=== PATIENT | female | born 1995 | race Two or more races ===

== ENCOUNTER → 2020-04-11 | Outpatient (CLI) | payer OTHER | END | disposition home or self-care (01) | LOC: PRENATAL 14:30 | PROVIDERS: ATTEND Obstetrics & Gynecology Maternal & Fetal Medicine | DX: O35.0XX1 Maternal care for (suspected) central nervous system malformation in fetus, fetus 1 (principal); O35.3XX1 Maternal care for (suspected) damage to fetus from viral disease in mother, fetus 1; O98.512 Other viral diseases complicating pregnancy, second trimester; O28.1 Abnormal biochemical finding on antenatal screening of mother; Z36.89 Encounter for other specified antenatal screening; Z3A.20 20 weeks gestation of pregnancy ==

== ENCOUNTER 2020-06-07 04:05 | Outpatient (CLI) | payer OTHER ==
[2020-06-07] MEDS ORDERED: FOLIC ACID0.8 M1 PO (04:31)
[2020-06-07] MEDS ORDERED: PRENATAL TABLE1 EAC1 PO (04:31)
== END 2020-06-08 10:44 | disposition home or self-care (01) ==
LOC: OBS/DEL 04:05
PROVIDERS: ATTEND Obstetrics & Gynecology
DX: O60.03 Preterm labor without delivery, third trimester (principal); O98.813 Other maternal infectious and parasitic diseases complicating pregnancy, third trimester; B37.49 Other urogenital candidiasis; O23.33 Infections of other parts of urinary tract in pregnancy, third trimester

== ENCOUNTER 2020-06-19 23:51 | Inpatient (IN) | payer OTHER ==
[~2020-06-19] VITALS: Ht 154.9 cm; Wt 55.8 kg
[~2020-06-19 23:51] MED LIST: FOLIC ACID0.8 M1 PO; PRENATAL TABLE1 EAC1 PO
== END 2020-06-25 12:18 | disposition home or self-care (01) | DRG 832 ==
LOC: OBS/DEL 23:51 → LDR 06-20 08:29 → OB/GYN 06-21 13:09
PROVIDERS: ADMIT Obstetrics & Gynecology; ATTEND Obstetrics & Gynecology
PROC: 4A1HXFZ Monitoring of Products of Conception, Cardiac Rhythm, External Approach (ICD-10-PCS; principal; 2020-06-20)
DX: O60.03 Preterm labor without delivery, third trimester (principal); O23.43 Unspecified infection of urinary tract in pregnancy, third trimester; Z3A.30 30 weeks gestation of pregnancy

== ENCOUNTER 2020-08-12 14:00 | Inpatient (IN) | payer OTHER ==
[~2020-08-12] VITALS: Ht 154.9 cm; Wt 59.0 kg
[2020-08-27] MEDS ORDERED: IRON325 MG PO (08:33)
== END 2020-08-29 13:56 | disposition home or self-care (01) | DRG 807 ==
LOC: SURH 08-24 14:00 → OB/GYN 08-27 06:28 → LDR 08-27 06:28 → OB/GYN 08-27 18:16
PROVIDERS: ADMIT Obstetrics & Gynecology; ATTEND Obstetrics & Gynecology
PROC: 10E0XZZ Delivery of Products of Conception, External Approach (ICD-10-PCS; principal; 2020-08-27)
PROC: 0KQM0ZZ Repair Perineum Muscle, Open Approach (ICD-10-PCS; 2020-08-27)
PROC: 10907ZC Drainage of Amniotic Fluid, Therapeutic from Products of Conception, Via Natural or Artificial Opening (ICD-10-PCS; 2020-08-27)
PROC: 3E033VJ Introduction of Other Hormone into Peripheral Vein, Percutaneous Approach (ICD-10-PCS; 2020-08-27)
PROC: 3E0D7GC Introduction of Other Therapeutic Substance into Mouth and Pharynx, Via Natural or Artificial Opening (ICD-10-PCS; 2020-08-27)
PROC: 4A1HXFZ Monitoring of Products of Conception, Cardiac Rhythm, External Approach (ICD-10-PCS; 2020-08-27)
DX: O70.1 Second degree perineal laceration during delivery (principal); Z37.0 Single live birth; O99.824 Streptococcus B carrier state complicating childbirth; Z3A.40 40 weeks gestation of pregnancy; Z20.822 Contact with and (suspected) exposure to COVID-19

== ENCOUNTER 2021-10-06 13:40 | Emergency (ER) | payer OTHER ==
[~2021-10-06] VITALS: Ht 154.9 cm; Wt 53.5 kg
[~2021-10-06 13:40] MED LIST changes: +IRON325 MG PO
[2021-10-06] MEDS ORDERED: VITAMIN D310 MC4 PO (14:13)
[2021-10-06] MEDS ORDERED: ACETAMINOPHEN650 M2 PO (17:17)
== END 2021-10-06 17:22 | disposition home or self-care (01) ==
LOC: ER 13:40
DX: O26.892 Other specified pregnancy related conditions, second trimester (principal); M54.50 Low back pain, unspecified; Z3A.14 14 weeks gestation of pregnancy

== ENCOUNTER 2021-10-11 13:08 | Emergency (ER) | payer OTHER ==
[~2021-10-11] VITALS: Ht 154.9 cm; Wt 53.5 kg
[~2021-10-11 13:08] MED LIST changes: +ACETAMINOPHEN650 M2 PO; +VITAMIN D310 MC4 PO
== END 2021-10-11 17:01 | disposition home or self-care (01) ==
LOC: ER 13:08
DX: O26.892 Other specified pregnancy related conditions, second trimester (principal); B34.8 Other viral infections of unspecified site; Z3A.16 16 weeks gestation of pregnancy

== ENCOUNTER 2021-11-05 10:39 | Outpatient (CLI) | payer OTHER | END 2021-11-05 12:11 | disposition home or self-care (01) | LOC: PRENATAL 10:39 | PROVIDERS: ATTEND Obstetrics & Gynecology Maternal & Fetal Medicine | DX: O35.0XX0 Maternal care for (suspected) central nervous system malformation in fetus, not applicable or unspecified (principal); O35.3XX0 Maternal care for (suspected) damage to fetus from viral disease in mother, not applicable or unspecified; Z3A.20 20 weeks gestation of pregnancy ==

== ENCOUNTER 2021-11-12 13:36 | Emergency (ER) | payer OTHER ==
[~2021-11-12] VITALS: Ht 154.9 cm; Wt 54.4 kg
[2021-11-12] MEDS ORDERED: MACROBID 100 M100 MG PO (17:38)
== END 2021-11-12 17:44 | disposition home or self-care (01) ==
LOC: ER 13:36
DX: O23.42 Unspecified infection of urinary tract in pregnancy, second trimester (principal); N39.0 Urinary tract infection, site not specified; Z3A.21 21 weeks gestation of pregnancy

== ENCOUNTER 2021-11-27 16:58 | Emergency (ER) | payer OTHER ==
[~2021-11-27] VITALS: Ht 152.4 cm; Wt 56.7 kg
[~2021-11-27 16:58] MED LIST changes: +MACROBID 100 M100 MG PO
== END 2021-11-27 20:07 | disposition home or self-care (01) ==
LOC: ER 16:58
DX: B34.9 Viral infection, unspecified (principal); Z20.822 Contact with and (suspected) exposure to COVID-19

== ENCOUNTER 2021-12-20 21:54 | Inpatient (IN) | payer OTHER ==
[~2021-12-20] VITALS: Ht 154.9 cm; Wt 59.0 kg
[2021-12-21] MEDS ORDERED: FOLIC ACID20 MG PO (14:53)
[2021-12-21] MEDS ORDERED: PRENATAL CAPLE1 EAC1 PO (14:53)
== END 2021-12-22 09:49 | disposition home or self-care (01) | DRG 831 ==
LOC: OBS/DEL 21:54 → LDR 12-21 14:29
PROVIDERS: ADMIT Obstetrics & Gynecology; ATTEND Obstetrics & Gynecology
PROC: 4A1HXCZ Monitoring of Products of Conception, Cardiac Rate, External Approach (ICD-10-PCS; principal; 2021-12-21)
DX: O98.512 Other viral diseases complicating pregnancy, second trimester (principal); U07.1 COVID-19; Z3A.26 26 weeks gestation of pregnancy

== ENCOUNTER 2022-01-02 10:31 | Outpatient (CLI) | payer OTHER ==
[~2022-01-02 10:31] MED LIST changes: +FOLIC ACID20 MG PO; +PRENATAL CAPLE1 EAC1 PO
== END 2022-01-02 11:31 | disposition home or self-care (01) ==
LOC: PRENATAL 10:31
PROVIDERS: ATTEND Obstetrics & Gynecology Maternal & Fetal Medicine
DX: O26.849 Uterine size-date discrepancy, unspecified trimester (principal); O35.0XX0 Maternal care for (suspected) central nervous system malformation in fetus, not applicable or unspecified; Z3A.28 28 weeks gestation of pregnancy

== ENCOUNTER 2022-02-17 09:03 | Outpatient (CLI) | payer OTHER | END 2022-02-17 10:15 | disposition home or self-care (01) | LOC: PRENATAL 09:03 | PROVIDERS: ATTEND Obstetrics & Gynecology Maternal & Fetal Medicine | DX: O26.849 Uterine size-date discrepancy, unspecified trimester (principal); O36.8199 Decreased fetal movements, unspecified trimester, other fetus; Z3A.32 32 weeks gestation of pregnancy; O14.90 Unspecified pre-eclampsia, unspecified trimester; Z88.0 Allergy status to penicillin ==

== ENCOUNTER 2022-03-12 14:00 | Inpatient (IN) | payer OTHER ==
[~2022-03-12] VITALS: Ht 154.9 cm; Wt 3.2 kg
== END 2022-03-27 12:55 | disposition home or self-care (01) | DRG 788 ==
LOC: LDR 03-22 14:00 → OB/GYN 03-24 03:47 → LDR 03-24 03:47 → OB/GYN 03-24 13:07
PROVIDERS: ADMIT Obstetrics & Gynecology; ATTEND Obstetrics & Gynecology
PROC: 4A1HXCZ Monitoring of Products of Conception, Cardiac Rate, External Approach (ICD-10-PCS; 2022-03-24)
PROC: 10D00Z1 Extraction of Products of Conception, Low, Open Approach (ICD-10-PCS; principal; 2022-03-24 12:00)
DX: O33.8 Maternal care for disproportion of other origin (principal); Z3A.40 40 weeks gestation of pregnancy; Z37.0 Single live birth; Z20.822 Contact with and (suspected) exposure to COVID-19

== ENCOUNTER 2022-05-15 14:49 | Emergency (ER) | payer OTHER ==
[~2022-05-15] VITALS: Ht 154.9 cm; Wt 53.5 kg
== END 2022-05-15 23:09 | disposition home or self-care (01) ==
LOC: ER 14:49
DX: O90.89 Other complications of the puerperium, not elsewhere classified (principal); R10.32 Left lower quadrant pain; Z88.8 Allergy status to other drugs, medicaments and biological substances